=== PATIENT | female | born 1995 | race African-American/Black ===

== ENCOUNTER 2021-07-22 22:21 | Emergency (ER) | payer MEDICAID ==
[~2021-07-22] VITALS: Ht 167.6 cm; Wt 63.5 kg
[2021-07-22 22:35] VITALS: BP_SYST 106
[2021-07-22] MEDS ORDERED: NACL 0.9% 1,000 ML IV ONE (23:45)
[2021-07-23 00:09] LABS: CALCIUM 8.1 mg/dL (8.4-11.0); CREATININE 0.72 mg/dL (0.55-1.30); POTASSIUM 3.7 mmol/L (3.5-5.1)
[2021-07-23 00:15] LABS: ALBUMIN 3.4 g/dL (3.4-4.8); TOTAL BILIRUBIN 0.3 mg/dL (0.0-1.0)
[2021-07-23 00:18] LABS: HEMATOCRIT 32.3 % (36-48); MEAN CORPUSCULAR HEMOGLOBIN 22 pg (27-31); MEAN CORPUSCULAR VOLUME 72 fL (79.0-98.0); RED BLOOD CELL COUNT(AUTO) 4.46 MIL/uL (4.2-6.2); WHITE BLOOD COUNT (AUTO) 6.5 K/uL (4.8-10.8)
[2021-07-23 00:19] LABS: EOSINOPHILS % (AUTO) 2.4 % (0.0-4.0); LYMPHOCYTES % (AUTO) 28.1 % (20.5-51.5); MEAN CORPUSCULAR HGB CONC 31 % (32-36); MONOCYTES % (AUTO) 9.3 % (1.7-9.3); NEUTROPHILS # (AUTO) 3.8 K/uL (1.8-7.7); NEUTROPHILS % (AUTO) 59.2 % (40.0-70.0); PLATELET COUNT (AUTO) 275 K/uL (130-430); RED CELL DISTRIBUTION WIDTH 16.1 % (9.0-15.0)
[2021-07-23 00:20] LABS: BASOPHILS # (AUTO) 0.1 K/uL (0.0-0.2); EOSINOPHILS # (AUTO) 0.2 K/uL (0.0-0.4); LYMPHOCYTES # (AUTO) 1.8 K/uL (1.0-5.5); MONOCYTES # (AUTO) 0.6 K/uL (0.0-1.0)
[2021-07-23 00:37] LABS: BILIRUBIN,URINE NEGATIVE (NEGATIVE); BLOOD, URINE 3+ (NEGATIVE); CLARITY/URINE SL CLOUDY (CLEAR); COLOR,URINE YELLOW (YELLOW); GLUCOSE,URINE NEGATIVE (NEGATIVE); KETONES,URINE NEGATIVE (NEGATIVE); LEUKOCYTE ESTERASE ,URINE 2+ (NEGATIVE); NITRITE, URINE NEGATIVE (NEGATIVE); PROTEIN URINE 2+ (NEGATIVE); UROBILINOGEN,URINE 0.2 (0.2-1.0)
[2021-07-23] MEDS ORDERED: cefTRIAXone 1 GM in D5W 50 ML IV ONE (01:00)
[2021-07-23] MEDS ORDERED: cefTRIAXone 1 GM IVPB PREMIX 50 ML IV ONE (01:02)
[2021-07-23] MEDS ORDERED: CIPR500T5 PO (01:21)
[2021-07-23] MEDS ORDERED: HYDR-3917 PO (01:21)
[2021-07-23] MEDS ORDERED: PHE25 PO (01:21)
[2021-07-23 01:27] LABS: BACTERIA,URINE None Seen /HPF (None Seen); RBC,URINE 0-3 /HPF (0-3); TRICHOMONAS,URINE None Seen /HPF (None Seen); WBC,URINE >100 /HPF (0-3); YEAST,URINE None Seen /HPF (None Seen)
[2021-07-23 01:28] LABS: MUCUS,URINE 1+ /LPF (None Seen)
[2021-07-23 01:29] LABS: URINE SULFO SALICYLIC ACID NEGATIVE (NEGATIVE)
[2021-07-23] MEDS ORDERED: ACETAMINOPHEN 500 MG TABLET ONE (01:36)
[2021-07-23 01:40] VITALS: BP_SYST 110
[2021-07-23] MEDS ORDERED: ACETAMINOPHEN 500 MG TABLET PO ONE (01:45)
== END 2021-07-23 01:40 | disposition home or self-care (01) ==
LOC: SED 22:21
DX: N39.0 Urinary tract infection, site not specified (principal); Z79.899 Other long term (current) drug therapy
CPT/HCPCS: 36415; 80053; 81000; 81025; 83690; 85025; 96361; 96365; 99284; J0696; J7030